=== PATIENT | male | born 1945 | race Hispanic/Latino ===

== ENCOUNTER 2018-02-12 06:04 | Emergency (ER) | payer MEDICARE ==
[2018-02-12 06:38] VITALS: O2SAT 97
--- NOTE | 2018-02-12 08:30 | ED PDOC ---
HPI: Male Pain Time Seen by Provider: 02/12/18 07:06 Chief Complaint (Nursing): Male Genitourinary Chief Complaint (Provider): Inaility to urinate History Per: Patient History/Exam Limitations: no limitations Onset/Duration Of Symptoms: Hrs (this morning, 3 am) Current Symptoms Are (Timing): Still Present Associated Symptoms: Urinary Symptoms (inability to urinate), Other (lower abdominal pain). denies: Fever, Chills, Nausea, Vomiting, Diarrhea Additional Complaint(s): Alexey Rivera is a 72 year old male with a past medical history of prostate cancer, who is presenting to the ER with complaints of being unable to urinate with associated abdominal pain, onset 3 am this morning. Patient states that he had cryotherapy on February 05 for prostate CA, and had a chamberlain removed yesterday by PMD. He reports self-catheterizing twice overnight with one cup urine returned. Patient states that he self-catheterized this morning at 3 am, and has been unable to urinate since. He denies any nausea, vomiting, diarrhea, fever, or chills. Patent offers no other medical complaints at this time. PMD: Dr. Vasquez Past Medical History Reviewed: Historical Data, Nursing Documentation, Vital Signs Vital Signs: Last Vital Signs Temp 97.6 F 02/12/18 06:31 Pulse 72 02/12/18 06:31 Resp 16 02/12/18 06:31 BP 121/72 02/12/18 06:31 Pulse Ox 97 02/12/18 06:31 - Medical History Other PMH: Prostate Cancer - Surgical History Surgical History: Appendectomy - Family History Family History: States: Unknown Family Hx - Home Medications Home Medications: Ambulatory Orders Medication Instructions Recorded Ciprofloxacin [Cipro] 500 mg PO BID #10 tab 02/12/18 Finasteride [Proscar] 5 mg PO DAILY 02/12/18 Metoclopramide [Reglan] 5 mg PO Q8 PRN 02/12/18 Tamsulosin [Flomax] 0.4 mg PO HS 02/12/18 - Allergies Allergies/Adverse Reactions: Allergies Allergy/AdvReac Type Severity Reaction Status Date / Time No Known Allergies Allergy Verified 02/13/18 18:35 Review of Systems ROS Statement: Except As Marked, All Systems Reviewed And Found Negative Constitutional: Negative for: Fever, Chills Gastrointestinal: Positive for: Abdominal Pain (lower). Negative for: Nausea, Vomiting, Diarrhea Genitourinary Male: Positive for: Other (inability to urinate) Physical Exam - Reviewed Nursing Documentation Reviewed: Yes Vital Signs Reviewed: Yes - Physical Exam Appears: Positive for: Non-toxic, Uncomfortable Head Exam: Positive for: ATRAUMATIC, NORMAL INSPECTION, NORMOCEPHALIC Skin: Positive for: Normal Color, Warm, Dry Eye Exam: Positive for: EOMI, Normal appearance, PERRL Neck: Positive for: Normal, Painless ROM, Supple Cardiovascular/Chest: Positive for: Regular Rate, Rhythm. Negative for: Murmur Respiratory: Positive for: Normal Breath Sounds. Negative for: Respiratory Distress Gastrointestinal/Abdominal: Positive for: Tenderness, Distended (suprapubic distension, tense). Negative for: Guarding Male Genital Exam: Positive for: other (Penile ecchymosis). Negative for: normal genitalia, scrotum tenderness (R), scrotum tenderness (L) Back: Positive for: Normal Inspection. Negative for: L CVA Tenderness, R CVA Tenderness Extremity: Positive for: Normal ROM Neurologic/Psych: Positive for: Alert, Oriented. Negative for: Motor/Sensory Deficits - Laboratory Results Result Diagrams: 02/12/18 10:45 02/12/18 10:45 - ECG O2 Sat by Pulse Oximetry: 97 (RA) Pulse Ox Interpretation: Normal Medical Decision Making Medical Decision Making: Time: 7:52 Impression: Urinary Retention Plan: --Morphine 2 mg IV 8:10 RN attempted to insert 16 [place]ab[place]lain; unable to pass. Attempted to insert a 14 and 12 [place] catheter with patient's consent, + urine drainage, total 380 cc. Pt tolerated procedure well. 8:[address] Martins regarding patient's case, will evaluate patient. Suprapubic catheter placed by Dr. Martins. 10:00 states PMD (Dr. Amador) was telling her pt needed to be transferred to [place] or [place] for unknown reason and wants Dr. Felix on consult. states she will put negative review on [employer]elp if not transferred. 10:[address] Loyd (covering for Dr. Mcdonough), agrees with discharge home with Abx and continue Flomax, no need for admission. Follow-up with Dr. Mcdonough next week for capping trial. Will notify Dr. Mcdonough's PA of patient's course. Explained plan with patient and . Pt and complaining that they can never get in contact with Dr. Mcdonough and that [place] is too far away to travel for reevaluation. 10:[address] Amador (PMD), states she did not get whole story from and patient does not in fact need to be transferred. Advised Dr. Amador t speak to again to clear up any confusion. Scribe Attestation: Documented by Karime Mesa, acting as a scribe for Lili Hernandez MD. Provider Scribe Attestation: All medical record entries made by the Scribe were at my direction and personally dictated by me. I have reviewed the chart and agree that the record accurately reflects my personal performance of the history, physical exam, medical decision making, and the department course for this patient. I have also personally directed, reviewed, and agree with the discharge instructions and disposition. Disposition - Clinical Impression Clinical Impression: Urinary retention - Disposition Referrals: [facility] [Outside] Condition: STABLE Additional Instructions: FOLLOW-UP WITH DR. MCDONOUGH SOON POSSIBLE FOR REEVALUATION. Prescriptions: Ciprofloxacin [Cipro] 500 mg PO BID #10 tab Instructions: How to Care for Your Suprapubic Urinary Catheter, Suprapubic Cystostomy, Urinary Retention Forms: [employer] (Russian)
[2018-02-12] MEDS ORDERED: Lidocaine 1% Inj (20ml) ONE (09:13)
[2018-02-12] MEDS ORDERED: Ciprofloxacin 400mg/200ml D5W 400 MG/200 ML BAG IV ONE (09:45)
[2018-02-12] MEDS ORDERED: Ciprofloxacin 400mg/200ml D5W 400 MG/200 ML BAG IVPB ONE ×2 (09:46→11:17)
[2018-02-12 11:11] LABS: BASO % 0.3 % (0.0-2.0); EOS # 0.1 K/uL (0.0-0.7); EOS % 1.2 % (0.0-4.0); HEMOGLOBIN 13.7 g/dL (12.0-18.0); LYMPH # 0.7 K/uL (1.0-4.3); LYMPH % 14.2 % (20.0-40.0); MEAN CELL VOLUME 92.7 fl (80.0-94.0); MEAN CORPUSCULAR HEMOGLOBIN 31.8 pg (27.0-31.0); MEAN CORPUSCULAR HGB CONC 34.3 g/dL (33.0-37.0); MEAN PLATELET VOLUME 9.9 fl (7.2-11.7); MONO # 0.6 K/uL (0.0-0.8); MONO % 12.2 % (0.0-10.0); NEUT # 3.8 K/uL (1.8-7.0); NEUT % 72.1 % (50.0-75.0); NRBC % 0.3 % (0.0-0.0); RBC 4.3 Mil/uL (4.40-5.90); RED CELL DISTRIBUTION WIDTH 12.9 % (11.5-14.5); WHITE BLOOD COUNT 5.3 K/uL (4.8-10.8)
[2018-02-12 11:13] LABS: PARTIAL THROMBOPLASTIN TIME 29.8 Seconds (25.6-37.1); PROTHROMBIN TIME 11.1 Seconds (9.8-13.1)
[2018-02-12 11:22] LABS: ALB/GLOB RATIO 1.5 (1.0-2.1); ALT/SGPT 50 U/L (21-72); AST/SGOT 30 U/L (17-59); BLOOD UREA NITROGEN 10 mg/dl (9-20); CALCIUM 9.2 mg/dL (8.4-10.2); GFR AFRICAN-AMERICAN > 60; GFR NON-AFRICAN AMERICAN > 60
[2018-02-12 12:46] LABS: URINE BACTERIA RARE (<OCC); URINE BILIRUBIN NEGATIVE (NEGATIVE); URINE BLOOD LARGE (NEGATIVE); URINE CLARITY CLEAR (Clear); URINE COLOR RED (YELLOW); URINE GLUCOSE (UA) NEG (Normal); URINE LEUKOCYTE ESTERASE NEG Leu/uL (Negative); URINE PROTEIN 100 mg/dL (NEGATIVE); URINE UROBILINOGEN 0.2-1.0 mg/dL (0.2-1.0)
[2018-02-12 15:13] VITALS: BP 132/74; PULSE 80; RESP 20; TEMP 98
== END 2018-02-12 13:30 | disposition home or self-care (01) ==
LOC: H.ER 06:04
DX: R33.9 Retention of urine, unspecified (principal)
CPT/HCPCS: 51701; 80053; 81003; 85025; 85610; 85730; 87086; 96374; 96375; 99285; J0744; J2270

== ENCOUNTER 2018-02-13 18:25 | Emergency (ER) | payer MEDICARE ==
[2018-02-13 18:40] VITALS: BP 146/100; PULSE 73; RESP 18; TEMP 97.8; O2SAT 99
--- NOTE | 2018-02-13 19:48 | ED PDOC ---
HPI: Male Pain Time Seen by Provider: 02/13/18 18:54 Chief Complaint (Nursing): Male Genitourinary Chief Complaint (Provider): Male Genitourinary History Per: Patient History/Exam Limitations: no limitations Onset/Duration Of Symptoms: Days (x 1) Current Symptoms Are (Timing): Still Present Additional Complaint(s): 72 year old male presents to the ED complaining of inability to urinate. Patient had a suprapubic catheter inserted by Dr. Martins yesterday. Since 16:00 , he noticed his catheter stopped draining. He has only drained about 100 ccs of urine and feels his bladder is full. Othersie: (-) nausea, (-) vomiting, (-) fever. PMD: Dr. Sandi Arzola MD Past Medical History Reviewed: Historical Data, Nursing Documentation, Vital Signs Vital Signs: Last Vital Signs Temp 97.8 F 02/13/18 18:38 Pulse 73 02/13/18 18:38 Resp 18 02/13/18 18:38 BP 146/100 H 02/13/18 18:38 Pulse Ox 99 02/13/18 18:38 - Medical History PMH: Benign Prostatic Hyperplasia - Surgical History Surgical History: Appendectomy - Family History Family History: States: Unknown Family Hx - Home Medications Home Medications: Ambulatory Orders Medication Instructions Recorded Ciprofloxacin [Cipro] 500 mg PO BID #10 tab 02/12/18 Finasteride [Proscar] 5 mg PO DAILY 02/12/18 Metoclopramide [Reglan] 5 mg PO Q8 PRN 02/12/18 Tamsulosin [Flomax] 0.4 mg PO HS 02/12/18 - Allergies Allergies/Adverse Reactions: Allergies Allergy/AdvReac Type Severity Reaction Status Date / Time No Known Allergies Allergy Verified 02/13/18 18:35 Review of Systems ROS Statement: Except As Marked, All Systems Reviewed And Found Negative Constitutional: Negative for: Fever Gastrointestinal: Negative for: Nausea, Vomiting Physical Exam - Physical Exam Comments: GENERAL APPEARANCE: Patient is awake, alert, oriented x 3, in no acute distress SKIN: Warm, dry; (-) cyanosis. EYES: (-) conjunctival pallor, (-) scleral icterus. CHEST AND RESPIRATORY: (-) rales, (-) rhonchi, (-) wheezes; breath sounds equal bilaterally. HEART AND CARDIOVASCULAR: (-) irregularity; (-) murmur, (-) gallop. ABDOMEN AND GI: (+) full bladder on palpation. Suprapubic catheter in place. EXTREMITIES: (-) deformity, (-) edema, (+) distal pulses. NEURO AND PSYCH: Mental status as above; (-) focal findings. - ECG O2 Sat by Pulse Oximetry: 99 (RA) Pulse Ox Interpretation: Normal Medical Decision Making Medical Decision Making: Time: 18:[address] Chamberlain was removed. Upon removal of Chamberlain connection, patient immediately had urine coming out of catheter. Drained [address] Martins was paged. Case was discussed with Dr. Martins. He agrees with plan to change Chamberlain catheter and bag. Advised patient to follow up with personal urologist in [facility]. Upon reevaluation, patient feels better. Chamberlain with leg bag is draining. Advised to follow up with personal urologist in 1-2 days without fail. Return to the emergency room at any time for any new or worsening symptoms. Patient states he fully agrees with and understands discharge instructions. States that he agrees with the plan and disposition. Verbalized and repeated discharge instructions and plan. I have given the patient opportunity to ask any additional questions. ---- Scribe Attestation: Documented by Stephy Montana, acting as a scribe for Mevrat Saldana PA-C Provider Scribe Attestation: All medical record entries made by the Scribe were at my direction and personally dictated by me. I have reviewed the chart and agree that the record accurately reflects my personal performance of the history, physical exam, medical decision making, and the department course for this patient. I have also personally directed, reviewed, and agree with the discharge instructions and disposition. Disposition - Clinical Impression Clinical Impression: Urinary catheter (Chamberlain) change required, Urinary retention - Patient ED Disposition Is Patient to be Admitted: No Counseled Patient/Family Regarding: Diagnosis, Need For Followup - Disposition Disposition: Routine/Home Disposition Time: 21:30 Condition: STABLE Additional Instructions: Thank you for letting us take care of you today. You were treated for chamberlain catheter change. The emergency medical care you received today was directed at your acute symptoms. Return to the Emergency Department if your symptoms worsen , do not improve, or if you have any other problems. Please contact your urologist doctor in 2 days for re-evaluation and follow up. Bring any paperwork you were given at discharge with you along with any medications you are taking to your follow up visit. Our treatment cannot replace ongoing medical care by a primary care provider (PCP) outside of the emergency department. Thank you for allowing the [facility] team to be part of your care today. Instructions: How to Care for Your Chamberlain Catheter, Male, Chamberlain Catheter, Male, Urinary Retention Forms: [employer] (Bermudian) - PA / PIT SHOVEL OPERATOR / Resident Statement MD/DO has reviewed & agrees with the documentation as recorded.
== END 2018-02-13 21:02 | disposition home or self-care (01) ==
LOC: H.ER 18:25
DX: R33.9 Retention of urine, unspecified (principal); N40.1 Benign prostatic hyperplasia with lower urinary tract symptoms